=== PATIENT | female | born 1990 ===

== ENCOUNTER → 2025-02-24 12:27 | Outpatient (AMB) | payer OTHER, SELFPAY ==
--- OUTSIDE RECORDS SUMMARY | 2025-02-19 13:45 | XMS_ITS | Encounter Summary ---
Author Organization [facility] Address [address] [place] [address] Care Team Providers Care Demo Coordinator Name Role Phone Jessica Lopez MD Primary Care Prov ider Reason for Visit * Reason Comments STD testing Encounter Details Date Type Department Care Team (Latest Contact Info) Description 02/19/2025 2:45 PM EDT Office Visit Obstetrics and Gynecology [address] [phone] Shantanu Billings, [facility] [address] [place] [address] Venereal disease screening (Primary Dx); Encounter for screening for infections with predominantly sexual mode of transmission Social History Tobacco Use Types Packs/Day Years Used Date Smoking Tobacco: Never Smokeless Tobacco: Never Alcohol Use Standard Drinks/Week Comments Yes 0.8 (1 standard drink = 0.6 oz p ure alcohol) occasional Comments No Sex and Gender Information Value Date Recorded Sex Assigned at Not on file Legal Sex Female 9:32 AM EST Gender Identity Not on file Sexual Orientation Not on file documented as of this encounter Last Filed Vital Signs Vital Sign Reading Time Taken Comments Blood Pressure 115/75 02/19/2025 2:54 PM EDT Pulse 74 02/19/2025 2:54 PM EDT Temperature - - Respiratory Rate 14 02/19/2025 2:54 PM EDT Oxygen Saturation - - Inhaled Oxygen Concentration - - Weight 97.4 kg (214 lb 12.8 oz) 02/19/2025 2:54 PM EDT Height 155 cm (5' 1.02 ) 02/19/2025 2:54 PM EDT Body Mass Index 40.55 02/19/2025 2:54 PM EDT documented in this encounter Progress Notes * Shantanu Billings CNM - 02/19/2025 2:45 PM EDT Chief Complaint Patient presents with STD testing .Subjective Patient ID: Sushila Hollis is a 34 y.o. female. Presents established presents for std screening for routine, denies sx. Currently on oral contraceptives (estrogen/progesterone). HPI Active Ambulatory Problems Diagnosis Date Noted Abdominal pain 09/04/2017 Anxiety 01/21/2013 Bilateral carotid bruits 01/26/2024 Brain aneurysm 01/22/2024 Breast asymmetry in female 05/20/2024 Carotid sinus syncope 01/26/2024 Chronic rhinitis 07/03/2019 Dermatitis 09/04/2017 Discoid lupus erythematosus 03/29/2021 Hypermobility arthralgia 02/19/2018 Iron deficiency 06/02/2020 Left shoulder tendinitis 08/09/2017 Lumbar disc herniation 08/09/2017 Murmur, cardiac 06/02/2020 Obesity (BMI 30-39.9) 09/22/2015 Pre-syncope 01/25/2024 Sacroiliac joint pain 02/19/2018 Shoulder instability, left 02/19/2018 Symptomatic bradycardia 06/02/2020 Vitamin D deficiency 06/02/2020 Seizure disorder ([facility] V24, [facility] V28) 12/05/2024 Resolved Ambulatory Problems Diagnosis Date Noted No Resolved Ambulatory Problems Past Medical History: Diagnosis Date History of depression Current Allergies[1] Review of Systems Constitutional: Negative for chills, fatigue and fever. Respiratory: Negative for shortness of breath. Gastrointestinal: Negative for abdominal pain. Endocrine: Negative for cold intolerance and heat intolerance. Genitourinary: Negative for difficulty urinating, dysuria, frequency, pelvic pain, urgency, vaginalbleeding and vaginal discharge. Musculoskeletal: Negative for back pain and joint swelling. Neurological: Negative for light-headedness and headaches. Objective Vitals: 02/19/25 1454 BP: 115/75 Pulse: 74 Resp: 14 Physical Exam Constitutional: Appearance: Normal appearance. Genitourinary: No lesions in the vagina. Right Labia: No rash, tenderness or lesions. Left Labia: No tenderness, lesions or rash. No vaginal discharge, erythema, tenderness, bleeding, ulceration or granulation tissue. Right Adnexa: not tender, not full and no mass present. Left Adnexa: not tender, not full and no mass present. Cervix is not parous or absent. No cervical motion tenderness, discharge, friability, lesion, polyp or nabothian cyst. Neurological: Mental Status: She is alert and oriented to person, place, and time. Assessment/Plan Venereal disease screening (Primary) - Chlamydia trachomatis and Neisseria gonorrhoeae molecular study Encounter for screening for infections with predominantly sexual mode of transmission - Wet prep, genital Wet smear Std screening F/u routinely [1] Allergies Allergen Reactions Other Rash Nickel/Metal shavon documented in this encounter Plan of Treatment Not on file documented as of this encounter Procedures Procedure Name Priority Date/Time Associated Diagnosis Comments TRICHOMONAS VAGINALIS ANTIGEN Routine 02/19/2025 3:05 PM EDT Encounter for screening for infections with predominantly sexual mode of transmission CHLAMYDIA TRACHOMATIS AND NEISSERIA GONORRHOEAE PCR Routine 02/19/2025 3:05 PM EDT Venereal disease screening WET PREP, GENITAL Routine 02/19/2025 3:0 5 PM EDT Encounter for screening for infections with predominantly sexual mode of transmission documented in this encounter Results * Trichomonas vaginalis antigen (02/19/2025 3:05 PM EDT) Trichomonas vaginalis Negative Negative 02/19/2025 8:43 PM EDT [facility] Swab Vaginal structure / Unknown Non-blood Collection / Unknown 02/19/2025 3:05 PM EDT 02/19/2025 3:25 PM EDT us Shantanu Billings CNM LAB MICROBIOLOGY - GENERAL OR DERABLES Final Result [facility] [address] [place] [address], [place] [phone] * Wet prep, genital (02/19/2025 3:05 PM EDT) Clue Cells, Wet Prep Negative Negative 02/19/2025 8:35 PM EDT [facility] Yeast, Wet Prep Negative Negative 02/19/2025 8:35 PM EDT [facility] Trichomonas, Wet Prep Indeterminate Negative 02/19/2025 8:35 PM EDT [facility] Comment:Refer to Trichomonas antigen. Swab Vaginal structure / Unknown Non-blood Collection / Unknown 02/19/2025 3:05 PM EDT 02/19/2025 3:25 PM EDT [facility] MICROBIOLOGY - GENERAL OR DERABLES Final Result Performing Organization Address City/[facility]/ZIP Co de Phone Number [facility] [address] [place] [address], [place] [phone] * Chlamydia trachomatis and Neisseria gonorrhoeae molecular study (02/19/2025 3:05 PM EDT) Pathologist [facility] Neisseria gonorrhoeae PCR Negative Negative LAB MOLECULAR DIAGNOSTICS METHOD 02/20/2025 9:30 AM EDT [facility] Chlamydia trachomatis PCR Negative Negative LAB MOLECULAR DIAGNOSTICS METHOD 02/20/2025 9:30 AM EDT [facility] Swab Vaginal structure / Unknown Non-blood Collection / Unknown 02/19/2025 3:05 PM EDT 02/19/2025 3:25 PM EDT [facility] MICROBIOLOGY - GENERAL OR DERABLES Final Result [facility] [address] [place] [address], [place] [phone] documented in this encounter Visit Diagnoses Diagnosis Venereal disease screening- Primary Screening examination for venereal disease Encounter for screening for infections with predominantly sexual mode of transmission documented in this encounter Care Teams Demo Coordinator Relationship Specialty Start Date End Date Jessica Lopez MD [address] [place] [id number] PCP - General 11/20/09 documented as of this encounter
--- NOTE | 2025-02-24 13:03 | A.OFFVIS_ITS ---
Intake Visit Reasons: 3 months Allergies No Known Allergies Allergy (Verified 12/05/24 08:58) HPI Comments Details: 34 yo RH woman who probably has combination of complex partial seizures and anxiety disorder. She reported episodes causing multiple symptoms. They started around 2022 when she was under multiple types stresses. She reported having episodes that typically started with a feeling of dizziness (lightheadedness) with blurred vision, ringing in ears, sweating when she would lay down. One times she passed out with these symptoms. She also had palpitation and chest pressure with these symptoms. She also noted tingling in her finger tips. She h ad about 6-7 episodes since then. She had cardiac work up done which was negative. She was still under stress. Her brother was diagnosed with epilepsy two years ago. She did not get too many headaches and did not have headache around the episodes. She had multiple tests done including cardiac eval and Tilt table testing. She has recently experienced exacerbation in her anxiety levels, potentially due to inconsistent medication adherence. The patient struggles with stress and irrational fears that might relate to her seizure condition and experiences fluctuating periods of well-being versus increased anxiety. She has not pursued medication for anxiety, relying on biweekly therapy sessions that provide temporary relief. Notably, her work environment poses stressors that could be exacerbating her symptoms, having previously had syncope episodes at the office. She aims to return to work despite these challenges, discussing workplace adjustments under ADA guidelines. [facility] Medical History (Updated 02/24/25 @ 13:05 by Charmaine Pink MD) Anxiety disorder Seizure disorder Physical Exam Neuro Other: Mental Status: Alert and oriented to person, place, and time. Normal attention. Normal spontaneous speech, fluency, and comprehension. No obvious issues with mood and memory. Affect is appropriate. Cranial Nerves: CN II: Visual thompson full to confrontation, visual acuity intact. CN III, IV, : Pupils equal, round, reactive to light and accommodation. Extraocular movements are normal. CN V: Facial sensation is normal. CN VII: Facial movements symmetrical. CN VIII: Hearing intact to bedside conversation is normal. CN IX, X: Palate elevates symmetrically. CN XI: Shoulder shrug and head turn symmetrical. CN XII: Tongue midline without atrophy or fasciculations. Motor: Bulk and tone normal in all extremities. No significant muscle weakness in arms and legs. No drift. Reflexes: Deep tendon reflexes 2+ and symmetric. Plantar response down-going bilaterally. Coordination: Gluoep-nb-hyzx and qvku-gg-chfs testing normal. No dysmetria. Gait and Station: No obvious gait abnormality. No ataxia or instability. Extrapyramidal: Full facial expressions and blinking. No rigidity. Movements are appropriate with no tremor or abnormality. Speech: Normal; no dysarthria or tremor. Assessment & Plan Assessment & Plan (1) Seizure disorder: Comment: MRI/MRA brain at [place] in Dec 2023: MRI normal. ?L MCA 1mm aneurysm 48 hr EEG at [facility] in Jul 2024: R occipital sharps 30 day cardiac Holter in 2023: Mostly NSR, one episode of ST and one of ST (reported) Routine EEG at off in Apr 2024: WNL Code(s): G40.909 - Epilepsy, unspecified, not intractable, without status epilepticus Category: Medical (2) Anxiety disorder: Code(s): F41.9 - Anxiety disorder, unspecified Category: Medical Qualifiers: Anxiety disorder type: generalized anxiety disorder Qualified Code(s): F41.1 - Generalized anxiety disorder Plan Impression: 34 years old woman with a neuropsychiatric syndrome comprised of significant anxiety and probably also complex partial seizure disorder. For now levetiracetam 500 mg twice a day was continued and she was advised to continue seeing her therapist. She was reassured and educated. Medications: Refilled levetiracetam 500 mg PO BID 180 tabs 0RF Coding Level of Care Code Est Pt Level 4 (03222) Diagnoses Seizure disorder G40.909 Generalized anxiety disorder F41.1 Anxiety disorder type: generalized anxiety disorder
--- OUTSIDE RECORDS SUMMARY | 2025-02-24 15:34 | XMS_ITS | Clinical Summary ---
Author Organization [facility] Address [address] [place] [address] Phone Care Team Providers Care Ad Writer Name Role Phone Jessica Lopez MD Primary Care Prov ider Allergies Active Allergy Reactions Criticality Noted Date Comments Other Rash 12/27/2017 Nickel/Metal shavon Medications hydroxychloroqu ine (PLAQUENIL) 200 mg tablet Take 1 tablet (200 mg total) by mouth 1 (one) time each day. 4 Active naproxen (NAPROSYN) 500 mg tablet Take 1 tablet (500 mg total) by mouth 2 (two) times a day if needed. for pain Active levETIRAcetam (KEPPRA) 500 mg tablet Take 1 tablet (500 mg total) by mouth at bedtime. 5 Active Junel FE 05/13, 28, 1 mg-20 mcg (21)/75 mg (7) per tablet TAKE 1 TABLET BY MOUTH EVERY DAY 28 tablet 2 5 Active Flonase Sensimist 27.5 mcg/actuation nasal spray Administer 1 spray into each nostril 1 (one) time each day. 10 g 3 5 Active Active Problems Problem Noted Date Diagnosed Date Seizure disorder (CMS/HCC V24, CMS/HCC V28) 11/22 Breast asymmetry in female 05/20/2024 Overview (05/20/2024): R>L Bilateral carotid bruits 01/26/2024 Carotid sinus syncope 01/26/2024 Pre-syncope 01/25/2024 Brain aneurysm 01/22/2024 Discoid lupus erythematosus 03/29/2021 Iron deficiency 06/02/2020 Murmur, cardiac 06/02/2020 Symptomatic bradycardia 06/02/2020 Vitamin D deficiency 06/02/2020 Chronic rhinitis 07/03/2019 Hypermobility arthralgia 02/19/2018 Sacroiliac joint pain 02/19/2018 Shoulder instability, left 02/19/2018 Abdominal pain 09/04/2017 Dermatitis 09/04/2017 Left shoulder tendinitis 08/09/2017 Lumbar disc herniation 08/09/2017 Obesity (BMI 30-39.9) 09/22/2015 Anxiety 01/21/2013 Encounters Date Type Department Care Team Description 02/19/2025 2:45 PM EDT Office Visit Obstetrics and Gynecology [address] [phone] Shantanu Billings CNM Venereal disease screening (Primary Dx); Encounter for screening for infections with predominantly sexual mode of transmission 12/05/2024 4:30 PM EDT Office Visit Adult Medicine - [place] [address] [place] [id number] Mansoor Ashford PA Ear fullness, bilateral (Primary Dx); Decreased hearing of both ears; Chronic rhinitis; Seizure disorder (CMS/HCC V24, CMS/HCC V28) 12/05/2024 Telephone Adult Medicine [facility] [address] [place] [address] Mansoor Ashford PA from Last 3 Months Immunizations Immunization Administration Dates Next Due DTP 02/06/1992,1991,1991 DTaP (Infanrix) 6wks to less than 7yo 06/05/1996 ,06/10/1993 [id number]-DWT-HZN (Pentacel) 2mo to less than 5yo 09/08/1992,02/06/1992,1991,08/07 HPV 9-valent (Gardisil) 9yo to less than 46yo 10/15/2015 HPV, Quadrivalent 11/18/2008,09/16/2008 Hepatitis B (Qdoiyvz-U-Gcbna , Recombivax HB-Adult) 19yo and older 1991,1991 Hepatitis B Pediatric (Enger ix B; Recombivax HB) to less than 20 yo 07/15/1992 Hib (HbOC) 09/08/1992, 2,1991,08/07 Influenza trivalent, with pr eservative (Fluzone; Afluria) 6mo and older 01/21/2013 MMR, measles mumps and rubel la Live (Priorix; M-M-R II) 12mo and older 06/08/1996,09/08/1992 Meningococcal MCV4P 01/23/2006 OPV 06/05/1996, 4,1991,08/07 Td Tetanus diptheria (Tdvax) 7yo and older 04/03/2003 Tdap Tetanus diptheria acell ular pertussis (Boostrix; Adacel) 7yo and older 12/10/2022,09/16/2008 Varicella live (Varivax) 12m o and older 07/30/1996 Surgical History Surgery Date Site/Laterality Comments OTHER SURGICAL HISTORY PROCEDURE: DENIES PREVIOUS SURGERY Medical History Medical History Date Comments Anxiety DX:Anxiety History of depression DX:History of depression Breast asymmetry in female DX:Br east asymmetry in female; COMMENT: R>L Obesity (BMI 30-39.9) DX:Obesity (BMI 30-39.9) Iron deficiency 06/02/2020 DX:Iron deficien cy Vitamin D deficiency 06/02/2020 DX:Vitamin D deficiency Family History Medical History Relation Name Comments Seizures Brother CABG Maternal Grandmother Diabetes Maternal Grandmother Other: dialysi Maternal Grandmother Cervical cancer Mother Diabetes Mother Other: CABG 3v Mother Breast cancer Neg Hx Colon cancer Neg Hx Ovarian cancer Neg Hx Prostate cancer Neg Hx Uterine cancer Neg Hx Relation Name Status Comments Brother Alive Father Alive Maternal Grandmother Mother Alive Social History Tobacco Use Types Packs/Day Years Used Date Smoking Tobacco: Never Smokeless Tobacco: Never Tobacco Cessation:Counseling Given: Not Answered Alcohol Use Standard Drinks/Week Comments Yes 0.8 (1 standard drink = 0.6 oz p ure alcohol) occasional Comments No Sex and Gender Information Value Date Recorded Sex Assigned at Not on file Legal Sex Female 9:32 AM EST Gender Identity Not on file Sexual Orientation Not on file Obstetrics History Last Filed Vital Signs Vital Sign Reading Time Taken Comments Blood Pressure 115/75 02/19/2025 2:54 PM EDT Pulse 74 02/19/2025 2:54 PM EDT Temperature 37 C (98.6 F) 08/20/2024 1:06 PM EDT Respiratory Rate 14 02/19/2025 2:54 PM EDT Oxygen Saturation - - Inhaled Oxygen Concentration - - Weight 97.4 kg (214 lb 12.8 oz) 02/19/2025 2:54 PM EDT Height 155 cm (5' 1.02 ) 02/19/2025 2:54 PM EDT Body Mass Index 40.55 02/19/2025 2:54 PM EDT Plan of Treatment Health Maintenance Due Date Last Done Comments Cholesterol Screening (Lipid Panel) 03/27/2022 09/22/2015 Social Influencers of Health Screening 03/27/2022 Depression Screening 04/24/2024 COVID-19 Vaccine ( - season) 2024 06/03/2021, 05/14/2021, 05/13/2021 Influenza Vaccine (#1) 2024 01/21/2013 Cervical Cancer Screening: HPV 12/07/2027 12/06/2022 DTaP,Tdap,and Td Vaccines (9 - Td or Tdap) 12/10/2032 12/10/2022, 09/16/2008, 04/03/2003, Additional history exists RSV Immunization Adult Patients (1 - 1-dose 75+ series) 2066 Hepatitis B Vaccines Completed 07/15/1992, 1991, 1991 HIB Vaccines Completed 09/08/1992, 08/22, 02/06/1992, Additional history exists IPV Vaccines Completed 06/05/1996, 05/25, 09/08/1992, Additional history exists MMR Vaccines Completed 06/08/1996, 09/08/1992 Varicella Vaccines Aged Out 07/30/1996 No longer eligible based on patient's age to complete this topic Meningococcal ACWY Vaccine Aged Out 01/23/2006 N o longer eligible based on patient's age to complete this topic HPV Vaccines Completed 10/15/2015, 10/23, 09/16/2008 HIV Screening Completed 10/23/2023, 10/23/2023 Hepatitis C Screening Completed 10/23/2023 Hepatitis A Vaccines Aged Out No long er eligible based on patient's age to complete this topic Meningococcal B Vaccine Aged Out No l onger eligible based on patient's age to complete this topic Pneumococcal Vaccine: Pediatrics (0 to 5 Years) and At-Risk Patients (6 to 49 Years) Aged Out No longer eligible based on patient's age to complete this topic RSV Immunization Patients Under 20 months Aged Out No longer eligible based on patient's age to complete this topic Procedures Procedure Name Priority Date/Time Associated Diagnosis Comments TRICHOMONAS VAGINALIS ANTIGEN Routine 02/19/2025 3:05 PM EDT Encounter for screening for infections with predominantly sexual mode of transmission WET PREP, GENITAL Routine 02/19/2025 3:0 5 PM EDT Encounter for screening for infections with predominantly sexual mode of transmission CHLAMYDIA TRACHOMATIS AND NEISSERIA GONORRHOEAE PCR Routine 02/19/2025 3:05 PM EDT Venereal disease screening BD BONE DENSITY DXA APPENDICULAR SKELETON Routine 01/09/2025 2:45 PM EDT HEPATITIS C SCREENING Routine 10/23/2023 HIV SCREENING Routine 10/23/2023 HPV Routine 12/06/2022 LIPID PANEL Routine 09/22/2015 from Last 3 Months or Most Recently Relevant to Health Maintenance Results * Trichomonas vaginalis antigen (02/19/2025 3:05 PM EDT) Trichomonas vaginalis Negative Negative 02/19/2025 8:43 PM EDT [facility] Swab Vaginal structure / Unknown Non-blood Collection / Unknown 02/19/2025 3:05 PM EDT 02/19/2025 3:25 PM EDT [facility] MICROBIOLOGY - GENERAL OR DERABLES Final Result [facility] [address] [place] [address], [place] [phone] * Chlamydia trachomatis and Neisseria gonorrhoeae molecular study (02/19/2025 3:05 PM EDT) Neisseria gonorrhoeae PCR Negative Negative LAB MOLECULAR DIAGNOSTICS METHOD 02/20/2025 9:30 AM EDT [facility] Chlamydia trachomatis PCR Negative Negative LAB MOLECULAR DIAGNOSTICS METHOD 02/20/2025 9:30 AM EDT [facility] Swab Vaginal structure / Unknown Non-blood Collection / Unknown 02/19/2025 3:05 PM EDT 02/19/2025 3:25 PM EDT [facility] MICROBIOLOGY - GENERAL OR DERABLES Final Result Performing Organization Address City/[facility]/ZIP Co de Phone Number [facility] [address] [place] [address], [place] [phone] * Wet prep, genital (02/19/2025 3:05 PM EDT) Clue Cells, Wet Prep Negative Negative 02/19/2025 8:35 PM EDT [facility] Yeast, Wet Prep Negative Negative 02/19/2025 8:35 PM EDT [facility] Trichomonas, Wet Prep Indeterminate Negative 02/19/2025 8:35 PM EDT [facility] Comment:Refer to Trichomonas antigen. Swab Vaginal structure / Unknown Non-blood Collection / Unknown 02/19/2025 3:05 PM EDT 02/19/2025 3:25 PM EDT us Barla R Billings CNM LAB MICROBIOLOGY - GENERAL OR DERABLES Final Result [facility] [address] [place] [address], * BD Bone Density DXA Appendicular Skeleton (01/09/2025 2:45 PM EDT) Anatomical Region Laterality Modality Body Bone Densitometr y Historical Provider IMG DXA PROCEDURES Final Result * HIV Screening (10/23/2023) [facility] HIV Screening abstracted Historical Provider HEALTH MAINTENANCE Final Result * Hepatitis C Screening (10/23/2023) [facility] Hepatitis C Screening abstracted Result [facility] Provider HEALTH MAINTENANCE Final Result * Cervical Cancer Screening: HPV (12/06/2022) [facility] Cervical Cancer Screening: HPV Negative Abstracted Historical Provider HEALTH MAINTENANCE Final Result * (ABNORMAL) Lipid panel (09/22/2015) [facility] LDL/HDL Ratio 4 0 - 4 Triglycerides 60 0 - 150 mg/dL Cholesterol 174 0 - 200 mg/dL HDL 47 >=40 mg/dL LDL Cholesterol 115(A) 0 - 100 mg/dL Blood Venous blood specimen / Unknown Result [facility] Historical Provider LAB BLOOD ORDERABLES Inocencia l Result from Last 3 Months or Most Recently Relevant to Health Maintenance Insurance [employer] Care Teams Ad Writer Relationship Specialty Start Date End Date Jessica Lopez MD [address] [place] [phone] PCP - General 11/20/09
--- OUTSIDE RECORDS SUMMARY | 2025-02-24 15:34 | XMS_ITS ---
Author Name [facility] Organization Unknown Problems Problem Status Onset Date Problem Type Date of Resoluti on Source Ear fullness, bilateral active EncounterDiagnosisAct [facility]HCCT Decreased hearing of both ears active EncounterDiagnosisAct HHCCT
--- OUTSIDE RECORDS SUMMARY | 2025-02-24 15:34 | XMS_ITS | Clinical Summary ---
Author Organization [facility] Address [address] [place] [address] Care Team Providers Care Wheel Polisher Name Role Phone Unavailable Primary Care Provider Unavailabl e Encounters Date Type Department Care Team Description 12/09/2024 Transcribe Orders [facility] Mansoor Ashford PA-C Ear fullness, bilateral (Primary Dx); Decreased hearing of both ears from Last 3 Months Social History Tobacco Use Types Packs/Day Years Used Date Smoking Tobacco: Never Assessed Comments Unknown Sex and Gender Information Value Date Recorded Sex Assigned at Not on file Legal Sex Female 3:08 PM EDT Gender Identity Not on file Sexual Orientation Not on file Plan of Treatment Health Maintenance Due Date Last Done Comments Hepatitis C Virus Screening 1991 HIV Screening 2004 DTaP/Tdap/Td Vaccines (1 - Tdap) 2010 Hepatitis B Vaccines (1 of 3 - 19+ 3-dose series) 2010 COVID-19 Vaccine (2023-2 5 season) 2024 HPV Vaccines (No Doses Required) Completed Pneumococcal Vaccine: Pediat blue (0-5 Years) and At-Risk Patients (6 to 49 Years) Aged Out No longer eligible b ased on patient's age to complete this topic
--- OUTSIDE RECORDS SUMMARY | 2025-02-24 15:34 | XMS_ITS | Encounter Summary ---
Author Organization [facility] Address [address] [place] [address] Care Team Providers Care Certified Orthotic Fitter Name Role Phone Jessica Lopez MD Primary Care Prov ider Reason for Visit * Reason Onset Date Comments Referral 10/15/2024 For ENT, does no t have a preference for a provider at this time. Will call [facility]. Encounter Details Date Type Department Care Team (Late st Contact Info) Description 10/15/2024 Telephone Adult Medicine - [place] [address] [place] [phone] Jessica Lopez MD [address] [place] [address] Social History Tobacco Use Types Packs/Day Years [...] on file documented as of this encounter Progress Notes * Zeynep White - 01/27/2025 9:29 AM EDT Can someone please close this message. * Candice hTomas - 10/16/2024 3:08 PM EDT Appt booked for 12/05- [facility] * Андрей Nichols MA - 10/16/2024 1:09 PM EDT Please schedule patient an office visit. * TRACY Reynolds - 10/16/2024 12:06 PM EDT Would probably be helpful for us to see her in case there is something we can do for her before seeing a specialist that might take months * Андрей Nichols MA - 10/16/2024 10:34 AM EDT Referral pended to ENT for blocked ears non allergy related. Please advise if patient should be seen first. * Zeynep White - 10/15/2024 3:16 PM EDT Referral Request: What insurance does the patient have today? [employer] PPO Referrals cannot be processed if the insurance is not accurate. If the insurance listed above in red is NO BILLING INFORMATION FOUND FOR THIS ENCOUTNER The patients correct insurance must be obtained and registered in [facility] or their referral can not be processed. Who is calling to request this referral? Pt If the caller is not the patient, what is their name? not applicable Ask the patient WHO referred them to this specialty: Patient self referred -- instructor looping suggested FIRST and LAST NAME of SPECIALIST PATIENT is seeing: n/a -- does not have a specific dr she wants to see -- she will call [facility] and ask where she can go as she has a PPO What specialty is this? ENT DIAGNOSIS Patient is being seen for (Not a body part or a procedure): ears blocked, unable to pop, not related to allergies. Have you seen this SPECIALIST for this PROBLEM/DX before? If YES, when? No Have you checked REVIEW or the APPT DESK to see if this referral has already been done or has visits left? yes Is this visit: Initial Visit Address of Specialist: n/a Phone # of Specialist: n/a Fax #: (if applicable): n/a Does patient have an appointment scheduled?: no Date of appointment- (including a retro-request): n/a Is this appointment related to: Not MVA, worker compensation, or surgery related documented in this encounter Plan of Treatment Not on file documented as of this encounter Visit Diagnoses Diagnosis Blocked ear, bilateral- Primary documented in this encounter Care Teams Certified Orthotic Fitter Relationship Specialty Start Date End Date Jessica Lopez MD [address] [place] [id number] PCP - General 11/20/09 documented as of this encounter
== END ==
LOC: HO.HSM 12:28
PROVIDERS: PCP Internal Medicine; Visit Provider Psychiatry & Neurology Neurology
DX: G40.909 Epilepsy, unspecified, not intractable, without status epilepticus (principal); F41.1 Generalized anxiety disorder
CPT/HCPCS: 99214